=== PATIENT | female | born 1970 | race Caucasian/White ===

== ENCOUNTER 2017-02-15 14:21 | Emergency (ER) | payer OTHER ==
[~2017-02-15] VITALS: Ht 172.7 cm; Wt 113.8 kg
[~2017-02-15 14:21] MED LIST: ALBUAER2 INH; ESCI1TAB10 PO; LEVO75TA5 PO; MOME50SP5 NAE; ONDA4TAB46 PO; SUMA100T16 PO; TOPI100T20 PO; TRIATAB3 PO
[2017-02-15 14:23] VITALS: TEMP 36.6; Ht 172.7 cm; Wt 113.8 kg
[2017-02-15 15:16] VITALS: O2SAT 97
[2017-02-15] MEDS ORDERED: LEVO88TA3 PO (15:21)
[2017-02-15] MEDS ORDERED: TPM100 PO (15:21)
[2017-02-15] MEDS ORDERED: IMT100 PO (15:21)
[2017-02-15] MEDS ORDERED: ONDA4TAB9 PO (15:21)
[2017-02-15] MEDS ORDERED: VNTHFA/IN INH (15:21)
[2017-02-15] MEDS ORDERED: LXP/20 PO (15:21)
[2017-02-15] MEDS ORDERED: MOME6000 NAE (15:22)
[2017-02-15 15:46] LABS: HEMATOCRIT 42.2 % (37-47); MEAN CELL VOLUME 85.1 fL (80-100); MEAN CORPUSCULAR HEMOGLOBIN 30.2 pg (25-34); MEAN CORPUSCULAR HGB CONC 35.5 g/dl (32-36); MEAN PLATELET VOLUME 9.4 fL (7.4-10.4); PLATELET COUNT 365 K/uL (130-400); RED BLOOD COUNT 4.96 M/uL (4.2-5.4); WHITE BLOOD COUNT 9.24 K/uL (4.8-10.8)
--- NOTE | 2017-02-15 15:50 | DIAGNOSTIC IMAGING REPORT ---
CHEST ONE VIEW PORTABLE CLINICAL HISTORY: Chest pain. COMPARISON STUDY: No previous studies for comparison. FINDINGS: The lung volumes are normal. There is no consolidation to suggest pneumonia and there is no evidence of pulmonary edema. Cardiac size is normal. Mediastinal contours are normal. There is no evidence of pulmonary edema. IMPRESSION: No acute cardiopulmonary findings. Electronically signed by: Tereso Rubio M.D. 02/15/2017 3:48 PM Dictated Date/Time: 02/15/2017 3:48 PM
[2017-02-15 15:56] LABS: PARTIAL THROMBOPLASTIN RATIO 1.1; PROTHROMBIN TIME (PATIENT) 10.5 SECONDS (9.0-12.0)
[2017-02-15 16:04] LABS: ALT/SGPT 25 U/L (12-78); AST/SGOT 13 U/L (15-37); BLOOD UREA NITROGEN 16 mg/dl (7-18); BUN/CREATININE RATIO 16.2 (10-20); CALCIUM 8.9 mg/dl (8.5-10.1); CARBON DIOXIDE 24 mmol/L (21-32); CHLORIDE 107 mmol/L (98-107); GLUCOSE 101 mg/dl (70-99); POTASSIUM 2.9 mmol/L (3.5-5.1); SODIUM 142 mmol/L (136-145)
[2017-02-15 16:09] LABS: ALB/GLOB RATIO 0.9 (0.9-2); ALKALINE PHOSPHATASE 94 U/L (45-117)
[2017-02-15 16:15] LABS: PREG INTERNAL POSITIVE QC POS CONTROL LINE
[2017-02-15 16:16] LABS: PREG INTERNAL NEGATIVE QC NEG CLEAR BACKGROUND
[2017-02-15] MEDS ORDERED: POTASSIUM CHLORIDE 10 MEQ TABCR PO STA (17:12)
[2017-02-15] MEDS ORDERED: PROM25TA9 PO (17:53)
[2017-02-15] MEDS ORDERED: BUPR-79 PO (17:53)
--- NOTE | 2017-02-15 18:03 | EMERGENCY ROOM VISIT NOTE ---
History Report prepared by Cristobal: El Roche Under the Supervision of: Dr. Nemesio Roman D.O. First contact with patient: 15:31 Chief Complaint: CARDIAC ASSESSMENT Stated Complaint: POSSIBLE SEIZURE, CHEST DISCOMFORT, MIGRAINE Nursing Triage Summary: Pt was at work today and believes that she may have had a seizure around 1000 this morning. Pt has no history of seizure like activity. Pt was on a 30min call and has a period of time that she has no memory of. Pt states that toward the end of her call she couldn't remember what she was doing. She immediately got a headache and nausea. Pt was seated the whole time. 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 Pt then developed substernal chest pain which felt like pressure. Pt states the pain did not last long and she no longer has chest pain. Pt stated that after this incident she had a hard time completing tasks and focusing. Pt now feels tired, vision and balance are off but states that this is how she gets after her head aches History of Present Illness The patient is a 46 year old female who presents to the Emergency Room for concerns about a possible syncopal episode occurring about 5 and a half hours ago. The patient was at work in the middle of a call that was about half an hour long. In the last 10 minutes of the call, the patient found herself realizing that she was at her desk at work. She could not understand why she was at work and did not realize at first that she was in the middle of a call. She could not recall the content of the beginning of the call. The patient referred to the call data to figure out what was going and finished the call. The patient looked at the call data with her boss and discovered that there was 1 minute of airtime in the call. The patient is unsure about the reason behind the airtime and cannot recall the event. Her boss also told her that it seemed as thought the patient was having a hard time regrouping herself after that 1 minute. Immediately after the episode, the patient started having a headache and nausea. She denies vomiting. About an hour ago, she started having chest tightness and discomfort. She rates a pain intensity of 0.5/10. She denies any recent fevers, chills, or any other complaints. She denies any history of seizures. Source of History: patient Onset: about 5 and a half hours ago Position: other (global) Symptom Intensity: 0.5/10 Quality: other (possible syncopal episode) Associated Symptoms: No fevers, No chills Review of Systems See HPI for pertinent positives & negatives. A total of 10 systems reviewed and were otherwise negative. Past Medical & Surgical Medical Problems: (1) Asthma, mild persistent (2) Dyslipidemia (3) Generalized anxiety disorder (4) Hearing difficulty (5) HTN (hypertension) (6) Hypothyroidism (7) Migraine without aura Surgical Problems: (1) H/O mastectomy (2) History of section (3) History of hysterectomy (4) History of tubal ligation Family History Depression Hypertension Kidney stones Social History Smoking Status: Never Smoker Alcohol Use: none Marital Status: Occupation Status: employed Current/Historical Medications Scheduled Bupropion (Wellbutrin Sr), 150 MG PO BID Escitalopram Oxalate (Escitalopram Oxalate), 20 MG PO DAILY Levothyroxine Sodium (Levothyroxine Sodium), 88 MCG PO QAM Topiramate (Topiramate), 100 MG PO HS Triamterene/Hctz (Triamterene/Hctz 37.5-25MG), 1 TAB PO DAILY Scheduled PRN Albuterol Hfa (Ventolin Hfa), 2 PUFFS INH Q6H PRN for SOB/Wheezing Mometasone Furoate (Nasal) (Mometasone Furoate), 2 SPRAYS MADY DAILY PRN for Nasal Congestion Ondansetron (Ondansetron HCl), 4 MG PO Q8 PRN for Nausea or Vomiting Promethazine Hcl (Phenergan), 25 MG PO Q4H PRN for Nausea Sumatriptan Succinate (Imitrex), 50-100 MG PO UD PRN for Migraine Allergies Coded Allergies: Adhesives (Verified Allergy, Intermediate, FITZGERALD & SCARRING, 04/18/16) Amoxicillin (Verified Allergy, Intermediate, RASH, 04/18/16) Clavulanic Acid (Verified Allergy, Intermediate, RASH, 04/18/16) Fluticasone (Verified Allergy, Intermediate, GI SYMPTOMS, 04/18/16) Latex1 -Allergic Contact Dermititis (Verified Allergy, Intermediate, RASH , 04/18/16) Codeine (Verified Allergy, Unknown, AIRWAY EDEMA, 04/18/16) Edetic Acid (Verified Allergy, Unknown, HIVES, 04/18/16) Ethanol (Verified Allergy, Unknown, AIRWAY EDEMA, 04/18/16) Guaifenesin (Verified Allergy, Unknown, AIRWAY EDEMA, 04/18/16) Rifaximin (Verified Allergy, Unknown, HIVES, 04/18/16) Physical Exam Vital Signs Date Time Temp Pulse Resp B/P (MAP) Pulse Ox O2 Delivery O2 Flow Rate FiO2 02/15/17 16:21 80 18 139/85 97 Room Air 02/15/17 15:25 87 02/15/17 15:16 97 Room Air 02/15/17 15:05 98 Room Air 02/15/17 14:26 96 Room Air 02/15/17 14:23 36.6 95 17 148/94 96 Room Air Physical Exam CONSTITUTIONAL/VITAL SIGNS: Reviewed / noted above. GENERAL: Non-toxic in appearance. INTEGUMENTARY: Warm, dry, and Amonate. HEAD: Normocephalic. EYES: without scleral icterus or trauma. ENT/OROPHARYNX: clear and moist. LYMPHADENOPATHY/NECK: Is supple without lymphadenopathy or meningismus. RESPIRATORY: Lungs clear and equal. CARDIOVASCULAR: Regular rate and rhythm. GI/ABDOMEN: Soft and nontender. No organomegaly or pulsatile mass. No rebound or guarding. Normal bowel sounds. EXTREMITIES: Warm and well perfused. BACK: No CVA tenderness. NEUROLOGICAL: Intact without focal deficits. PSYCHIATRIC: normal affect. MUSCULOSKELETAL: Normally developed with good muscle tone. Medical Decision & Procedures Laboratory Results 02/15/17 15:30 02/15/17 15:30 Test 02/15/17 15:30 02/15/17 15:36 Red Blood Count 4.96 M/uL (4.2-5.4) Mean Corpuscular Volume 85.1 fL (80-100) Mean Corpuscular Hemoglobin 30.2 pg (25-34) Mean Corpuscular Hemoglobin Concent 35.5 g/dl (32-36) RDW Standard Deviation 42.0 fL (36.4-46.3) RDW Coefficient of Variation 13.5 % (11.5-14.5) Mean Platelet Volume 9.4 fL (7.4-10.4) Prothrombin Time 10.5 SECONDS (9.0-12.0) Prothromb Time International Ratio 1.0 (0.9-1.1) Activated Partial Thromboplast Time 27.4 SECONDS (21.0-31.0) Partial Thromboplastin Ratio 1.1 Anion Gap 11.0 mmol/L (3-11) Est Creatinine Clear Calc Drug Dose 93.0 ml/min Estimated GFR () 78.2 Estimated GFR (Non- 67.5 BUN/Creatinine Ratio 16.2 (10-20) Calcium Level 8.9 mg/dl (8.5-10.1) Total Bilirubin 0.3 mg/dl (0.2-1) Aspartate Amino Transf (AST/SGOT) 13 U/L (15-37) Alanine Aminotransferase (ALT/SGPT) 25 U/L (12-78) Alkaline Phosphatase 94 U/L (45-117) Total Creatine Kinase 39 U/L (26-192) Creatine Kinase MB < 0.5 ng/ml (0.5-3.6) Creatine Kinase MB Ratio (0-3.0) Total Protein 7.3 gm/dl (6.4-8.2) Albumin 3.5 gm/dl (3.4-5.0) Globulin 3.8 gm/dl (2.5-4.0) Albumin/Globulin Ratio 0.9 (0.9-2) Human Chorionic Gonadotropin, Qual NEG (NEG) Bedside Troponin I < 0.030 ng/ml (0-0.045) Laboratory results as stated above per my review. Medications Administered Medications (Trade) Dose Ordered Sig/Roxana Route Start Time Stop Time Status Last Admin Dose Admin Potassium Chloride (Klor-Con M10) 40 meq NOW STAT PO 02/15/17 17:12 02/15/17 17:14 DC 02/15/17 17:26 40 MEQ ED Course 1531: Previous medical records were reviewed. The patient was evaluated in room C06. A complete history and physical examination was performed. Medical Decision Medication Reconciliation: I attest that I have personally reviewed the patient' s current medication list. Patient was found to have a slightly elevated blood pressure due to circumstances. I do not believe that the patient requires hypertension monitoring. Differential includes acute cardiac dysrhythmia, microinfarction, CVA, TIA, dehydration, anemia, electrolyte disturbance, seizure, trauma, intracranial bleeding, acute vascular catastrophe, thoracic aortic dissection, PE, abdominal aortic aneurysm rupture, ectopic rupture. This is a 46-year-old female who presents to the ED with a chief complaint of thinking she may have had a seizure. 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 The patient states that her boss reviewed the message and there was 1 minute where there was silent on the phone. The patient was able to finish the phone call and then came in for evaluation. She thought she may have had a seizure. She has no other specific complaints. She did not bite her tongue. No incontinence. Her vital signs here are stable. Physical exam did not reveal any abnormalities. EKG shows sinus rhythm at a rate of 87 with an isolated PVC. She did not have frequent PVCs on her monitor. Her CBC and complete metabolic panel were unremarkable with exception of a potassium of 2.9. She states that her potassium does run low. Cardiac enzymes were negative. HCG is negative. Chest x-ray is negative for acute disease. The patient was told the results. She has no symptoms at this time. She is told to follow-up with her PCP. Based on the patient's story, it sounds like she may have had a syncopal episode. This was unwitnessed. I do not feel this is seizure because there was no postictal period. She is clinically well at this time and is felt to be stable for outpatient follow-up. Impression Primary Impression: Syncope Scribe Attestation The scribe's documentation has been prepared under my direction and personally reviewed by me in its entirety. I confirm that the note above accurately reflects all work, treatment, procedures, and medical decision making performed by me. Departure Information Dispostion Home / Self-Care Referrals Tl Trejo M.D. (PCP) Patient Instructions My [facility], Syncope Additional Instructions Follow-up with your doctor for further care and evaluation in 1-2 days. Return to the emergency department for worsening or new symptoms or any concerns. You have been examined and treated today on an emergency basis only. This is not a substitute for, or an effort to provide, complete comprehensive medical care. It is impossible to recognize and treat all injuries or illnesses in a single emergency department visit. It is therefore important that you follow up closely with your doctor. Call as soon as possible for an appointment.
[2017-02-15 18:19] VITALS: BP 138/81; PULSE 83; O2SAT 96
== END 2017-02-15 18:21 | disposition home or self-care (01) ==
LOC: C.EDB 14:22 → C.EDC 18:21
DX: R55 Syncope and collapse (principal); J45.30 Mild persistent asthma, uncomplicated; E78.5 Hyperlipidemia, unspecified; F41.1 Generalized anxiety disorder; I10 Essential (primary) hypertension; E03.9 Hypothyroidism, unspecified; Z90.10 Acquired absence of unspecified breast and nipple; Z90.710 Acquired absence of both cervix and uterus; Z98.51 Tubal ligation status; Z81.8 Family history of other mental and behavioral disorders; Z84.1 Family history of disorders of kidney and ureter; Z82.49 Family history of ischemic heart disease and other diseases of the circulatory system; Z79.899 Other long term (current) drug therapy